=== PATIENT | female | born 1980 | race Two or more races ===

== ENCOUNTER 2023-06-23 13:15 | Emergency (ER) | payer BC ==
[~2023-06-23] VITALS: Ht 152.4 cm; Wt 120.2 kg
[2023-06-23] MEDS ORDERED: METHOCARBAMOL5000 GM (13:25)
[2023-06-23] MEDS ORDERED: GRALISE600 MG (13:26)
[2023-06-23] MEDS ORDERED: CHILDREN'S5 MG/5 M1 (13:26)
[2023-06-23] MEDS ORDERED: TYLENOL 120MG120 MG (13:26)
[2023-06-23] MEDS ORDERED: LASIX20 MG (13:26)
[2023-06-23] MEDS ORDERED: CARBAMAZEPINE25 GM (13:27)
[2023-06-23] MEDS ORDERED: ARIPIPRAZOL1 MG/1 ML (13:27)
[2023-06-23] MEDS ORDERED: HYDROXYCHLOROQUINE (13:27)
[2023-06-23] MEDS ORDERED: MONTELUKAST SODI4 M1 (13:28)
[2023-06-23] MEDS ORDERED: SILENOR3 MG (13:28)
[2023-06-23] MEDS ORDERED: PRED MILD5 ML (13:28)
== END 2023-06-23 17:29 | disposition home or self-care (01) ==
LOC: ER 13:15
DX: L03.114 Cellulitis of left upper limb (principal); M06.8A Other specified rheumatoid arthritis, other specified site; G50.0 Trigeminal neuralgia; D72.12 Drug rash with eosinophilia and systemic symptoms syndrome; Z88.2 Allergy status to sulfonamides

== ENCOUNTER → 2023-06-24 | Emergency (ER) | payer BC ==
[~2023-06-24] VITALS: Ht 162.6 cm; Wt 90.7 kg
[~2023-06-24] MED LIST: ARIPIPRAZOL1 MG/1 ML; CARBAMAZEPINE25 GM; CHILDREN'S5 MG/5 M1; GRALISE600 MG; HYDROXYCHLOROQUINE; LASIX20 MG; METHOCARBAMOL5000 GM; MONTELUKAST SODI4 M1; PRED MILD5 ML; SILENOR3 MG; TYLENOL 120MG120 MG
== END | disposition left against medical advice (07) ==
LOC: ER 14:24
DX: L03.114 Cellulitis of left upper limb (principal); Z88.2 Allergy status to sulfonamides; Z88.8 Allergy status to other drugs, medicaments and biological substances; D72.12 Drug rash with eosinophilia and systemic symptoms syndrome; L50.8 Other urticaria